=== PATIENT | female | born 1950 | race Caucasian/White ===

== ENCOUNTER 2016-07-14 22:28 | Observation (INO) | payer MEDICARE, OTHER ==
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
[2016-07-14 17:42] LABS: BASOPHILS 0.4 %; BASOPHILS ABSOLUTE 0.04 10/3/uL (0.0-0.16); EOSINOPHILS 1.6 %; EOSINOPHILS ABSOLUTE 0.18 10/3/uL (0.0-0.53); HEMATOCRIT 39.1 % (36.0-48.0); HEMOGLOBIN 13.5 g/dL (12.0-16.0); IMMATURE GRANULOCYTES 0.1 %; IMMATURE GRANULOCYTES ABSOLUTE 0.01 10/3/uL (0.0-0.11); LYMPHOCYTES 30.5 %; LYMPHOCYTES ABSOLUTE 3.47 10/3/uL (0.67-4.30); MEAN CORPUS HGB CONC 34.5 g/dL (32.0-36.0); MEAN CORPUSCULAR HEMOGLOB 32.8 pg (26.0-34.0); MEAN CORPUSCULAR VOLUME 94.9 fL (80-100); MEAN PLATELET VOLUME 10.4 fL (9.2-13.0); MONOCYTES 9.4 %; MONOCYTES ABSOLUTE 1.07 10/3/uL (0.21-1.20); NEUTROPHILS ABSOLUTE 6.62 10/3/uL (2.02-8.40); RBC DISTRIBUTION WIDTH 13.8 % (12.0-16.0); RED CELL COUNT 4.12 10/6/uL (4.0-5.6)
[2016-07-14 17:43] LABS: ER CBC TAT 0 Hrs 05 Mins; MANUAL DIFF NO %; PLATELET COUNT 299 10/3/uL (150-400); WHITE BLOOD CELLS 11.4 10/3/uL (4.5-10.5)
[2016-07-14 17:50] LABS: PROTIME (NOT ORD) 12.6 SEC (12.0-14.5)
[2016-07-14 17:51] LABS: PARTIAL THROMBO TIME 31.6 SEC (22.5-37.2)
[2016-07-14 17:59] LABS: BUN (BLOOD UREA NITROGEN) 37 MG/DL (6-23); CHLORIDE, SERUM 101 MMOL/L (96-112); CO2 (CARBON DIOXIDE) 29 MMOL/L (24-34); CREATININE 1.33 MG/DL (0.55-1.02); GFR AFRICAN AMERICAN 48 ML/MIN (>=60); GFR NON AFRICAN AMERICAN 42 ML/MIN (>=60); GLUCOSE, SERUM 109 MG/DL (60-99); POTASSIUM, SERUM 3.1 MMOL/L (3.5-5.3); SODIUM, SERUM 141 MMOL/L (135-148)
[2016-07-14 18:02] LABS: CHEST PAIN PROFILE TAT 0 Hrs 24 Mins; TROPONIN I 0.08 NG/ML (<0.05)
[~2016-07-14 22:28] MED LIST: ALORA0.025 MG TD; BENTYL10 PO; FISH-EPA1000 MG PO; LEVSINTAB PO; LOP50 PO; LORTAB10 PO; MAX25 PO; NORPACE PO; PROTONIX PO; ZOCOR40 PO
[2016-07-14] MEDS ORDERED: LOP100 PO (23:47)
[2016-07-14] MEDS ORDERED: COZ50 PO (23:49)
[2016-07-14] MEDS ORDERED: PRAVACHOL40 MG PO (23:49)
[2016-07-14] MEDS ORDERED: VIVELLE SY0.025 MG/2 TOP (23:49)
[2016-07-14] MEDS ORDERED: KLOR-CON M1010 MEQ PO (23:50)
[2016-07-14] MEDS ORDERED: P5 PO (23:50)
[2016-07-14] MEDS ORDERED: ULTRAM50 PO (23:51)
[2016-07-14] MEDS ORDERED: MTX2.5 PO (23:53)
[2016-07-14] MEDS ORDERED: FOLIC PO (23:53)
[2016-07-14] MEDS ORDERED: PRILOSEC40 MG PO (23:54)
[2016-07-14] MEDS ORDERED: DEMA20 PO (23:55)
[2016-07-15 04:07] LABS: ALBUMIN 3.5 G/DL (3.5-5.0); ALKALINE PHOSPHATASE 87 U/L (45-117); FREE T4 0.98 NG/DL (0.76-1.46); SGOT(AST) 20 U/L (5-40); SGPT(ALT) 27 U/L (5-65); TOTAL BILIRUBIN 0.4 MG/DL (0-1.2); TOTAL PROTEIN 6.2 G/DL (6.0-8.5)
[2016-07-15 04:11] LABS: DIRECT BILIRUBIN < 0.1 MG/DL (0.0-0.4); INDIRECT BILIRUBIN(NOT ORDER) 0.3 MG/DL (0.1-0.9); TROPONIN I 0.12 NG/ML (<0.05)
[2016-07-15 05:52] LABS: POTASSIUM, SERUM 3.7 MMOL/L (3.5-5.3)
[2016-07-16 05:28] LABS: CALCIUM, SERUM 9.1 MG/DL (8.5-10.4); CHLORIDE, SERUM 108 MMOL/L (96-112); GFR AFRICAN AMERICAN 85 ML/MIN (>=60); GFR NON AFRICAN AMERICAN 73 ML/MIN (>=60); GLUCOSE, SERUM 101 MG/DL (60-99); POTASSIUM, SERUM 4.2 MMOL/L (3.5-5.3); SODIUM, SERUM 140 MMOL/L (135-148)
[2016-07-16 05:32] LABS: BUN (BLOOD UREA NITROGEN) 20 MG/DL (6-23); CO2 (CARBON DIOXIDE) 24 MMOL/L (24-34); CREATININE 0.83 MG/DL (0.55-1.02)
[2016-07-16] MEDS ORDERED: NORV5 PO (10:58)
== END 2016-07-16 12:41 | disposition home or self-care (01) ==
LOC: ER 22:28 → CDU1 23:33
PROVIDERS: Clinical Nurse Specialist; Emergency Medicine; Internal Medicine Cardiovascular Disease
DX: I11.0 Hypertensive heart disease with heart failure (principal); I50.32 Chronic diastolic (congestive) heart failure; E78.5 Hyperlipidemia, unspecified; E78.00 Pure hypercholesterolemia, unspecified; N17.9 Acute kidney failure, unspecified; K21.9 Gastro-esophageal reflux disease without esophagitis; Z87.891 Personal history of nicotine dependence; Z88.8 Allergy status to other drugs, medicaments and biological substances; Z79.899 Other long term (current) drug therapy; Z95.0 Presence of cardiac pacemaker; Z98.890 Other specified postprocedural states; Z90.710 Acquired absence of both cervix and uterus; Z82.49 Family history of ischemic heart disease and other diseases of the circulatory system
CPT/HCPCS: 71020; 78452; 80048; 80076; 83735; 83880; 84132; 84439; 84443; 84484; 85025; 85610; 85730; 93005; 93017; 96374; 96376; 99291; A9270-GY; A9502; C8929; G0378; J2405; Q9957